=== PATIENT | male | born 1985 | race Two or more races ===

== ENCOUNTER 2019-06-09 16:36 | Emergency (ER) | payer MEDICAID ==
[~2019-06-09] VITALS: Ht 177.8 cm; Wt 77.1 kg
[2019-06-09 16:40] VITALS: BP 141/80
--- NOTE | 2019-06-09 16:40 | NUR ---
ED Nurse Note: Patient brought in by RA from a gas station c/o tingling and numbness located on the right side of his body, patient states that he has been experiencing left sided chest pain for 1 year now, pain is aggravateted by pulling, states that he called rescue due to him feeling numbess and tingling. patient is alert and oriented x4, ambulatory with a steady gait, VSS IV started on left ac 18 gauge, patient placed on a diagnostic cardiac sonographer and waiting for orders
--- NOTE | 2019-06-09 16:56 | Emergency Room Report ---
History of Present Illness General Chief Complaint: General Complaint Source: Patient, EMS Present Illness HPI Disclaimer: Please note that this report is being documented using DRAGON technology. This can lead to erroneous entry secondary to incorrect interpretation by the dictating instrument. HPI: 34-year-old male with no reported medical history presents for evaluation of chest pain. Patient states he has been having intermittent left-sided chest pain that he feels like a pulling/tearing sensation below the left nipple for approximately 1 year. He has been seen at many hospitals over the past year for this presentation all of which he says have been unremarkable. He gets this pain whenever he lifts anything heavy or bends or twists at his chest. He also notes some epigastric and left upper quadrant burning that radiates up into the chest sometimes and takes omeprazole for it. This afternoon he was driving and became lightheaded and near syncopal but did not lose consciousness. He noted a burning sensation in the lower chest and the pain in the left upper chest as he usually does. He also had some tingling in the right arm which is new. He had a brief episode of shortness of breath and tachypnea and blurred vision but this is now resolved. There is no head injury , no loss of consciousness. He still feels the chest discomfort though not as severe. Still some lightheadedness. Numbness and tingling is resolved and he said he had some spasming in the right arm during this episode. No prior history of anxiety. Non-smoker, no drug use, no alcohol use. Denies family history of CAD. No diabetes. PMH: Denies PSH: Denies Allergies: Denies Social Hx: Denies tobacco, alcohol or drug use Allergies: Coded Allergies: No Known Allergies (Unverified , 06/09/19) Nursing Documentation-PMH Past Medical History: No History, Except For Review of Systems All Other Systems: negative except mentioned in HPI Physical Exam Vital Signs Date Time Temp Pulse Resp B/P (MAP) Pulse Ox O2 Delivery O2 Flow Rate FiO2 06/09/19 16:32 98.6 84 16 141/80 (100) 100 Room Air General: Awake and alert, no acute distress HEENT: NC/AT. EOMI. PERRLA, anicteric sclera. Dry mucous membranes Neck: Supple, trachea midline Chest Wall: Tender to palpation of the left chest wall and over the sternum. No deformity, no crepitus Cardiovascular: RRR. S1 and S2 normal. No murmur appreciated Resp: Normal work of breathing. No cough, wheezing or crackles appreciated Abdomen: Abdomen is soft, nondistended. Nontender Skin: Intact. No abrasions, laceration or rash over the exposed skin MSK: Normal tone and bulk. Moving all extremities. No obvious deformity. Neuro: Awake and alert. Mentating appropriately. Medical Decision Making Diagnostic Impression: Primary Impression: Chest pain ER Course This a 34-year-old male presenting for evaluation of chest pain and near syncope. Differential includes was not limited to angina, ACS, arrhythmia, anxiety, aortic aneurysm, bronchitis, GERD, pneumonia, pneumothorax, viral syndrome, electrolyte abnormality. We will start broad metabolic and cardiac work-up. Patient will have EKG, chest x-ray be treated with aspirin and nitroglycerin. We will also give a GI cocktail possibly for GERD. He has an appointment with his PMD tomorrow and states that his chest pain and abdominal burning are the same symptoms he has had for 1 year the only new symptom is the near syncope and the tingling in the right arm. Disposition depending on patient clinical condition and lab results. Laboratory Tests Test 06/09/19 16:45 06/09/19 19:20 White Blood Count 8.4 K/UL (4.8-10.8) Red Blood Count 5.20 M/UL (4.70-6.10) Hemoglobin 16.2 G/DL (14.2-18.0) Hematocrit 47.3 % (42.0-52.0) Mean Corpuscular Volume 91 FL (80-99) Mean Corpuscular Hemoglobin 31.3 PG (27.0-31.0) H Mean Corpuscular Hemoglobin Concent 34.3 G/DL (32.0-36.0) Red Cell Distribution Width 10.2 % (11.6-14.8) L Platelet Count 208 K/UL (150-450) Mean Platelet Volume 8.6 FL (6.5-10.1) Neutrophils (%) (Auto) 52.3 % (45.0-75.0) Lymphocytes (%) (Auto) 38.6 % (20.0-45.0) Monocytes (%) (Auto) 6.2 % (1.0-10.0) Eosinophils (%) (Auto) 2.0 % (0.0-3.0) Basophils (%) (Auto) 0.9 % (0.0-2.0) Sodium Level 139 MMOL/L (136-145) Potassium Level 3.4 MMOL/L (3.5-5.1) L Chloride Level 102 MMOL/L (98-107) Carbon Dioxide Level 24 MMOL/L (21-32) Anion Gap 13 mmol/L (5-15) Blood Urea Nitrogen 11 mg/dL (7-18) Creatinine 0.9 MG/DL (0.55-1.30) Estimate Glomerular Filtration Rate > 60 mL/min (>60) Glucose Level 99 MG/DL (74-106) Calcium Level 9.4 MG/DL (8.5-10.1) Phosphorus Level 2.4 MG/DL (2.5-4.9) L Magnesium Level 2.0 MG/DL (1.8-2.4) Total Bilirubin 0.4 MG/DL (0.2-1.0) Aspartate Amino Transferase (AST) 22 U/L (15-37) Alanine Aminotransferase (ALT) 34 U/L (12-78) Alkaline Phosphatase 74 U/L (46-116) Total Creatine Kinase 373 U/L (26-308) H Creatine Kinase MB 0.7 NG/ML (0.0-3.6) Creatine Kinase MB Relative Index 0.1 Troponin I 0.000 ng/mL (0.000-0.056) 0.000 ng/mL (0.000-0.056) Pro-B-Type Natriuretic Peptide 65 pg/mL (0-125) Total Protein 8.3 G/DL (6.4-8.2) H Albumin 4.6 G/DL (3.4-5.0) Globulin 3.7 g/dL Albumin/Globulin Ratio 1.2 (1.0-2.7) EKG Diagnostic Results EKG Time: 16:53 Rate: normal Rhythm: NSR ST Segments: no acute changes Other Impression Sinus rhythm, normal axis, normal intervals, no ST segment changes. Hyperacute T waves in V3 and V4 Rhythm Strip Diag. Results Rhythm Strip Time: 16:53 EP Interpretation: yes Rate: 60s Rhythm: NSR, no PVC's, no ectopy Chest X-Ray Diagnostic Results Chest X-Ray Diagnostic Results : Chest X-Ray Ordered: Yes # of Views/Limited/Complete: 1 View Indication: Chest Pain EP Interpretation: Yes Interpretation: no consolidation, no effusion, no pneumothorax, no acute cardiopulmonary disease, other - Normal cardiac silhouette, normal mediastinum size Impression: No acute disease Electronically Signed by: signed by Dr. James Desai Reevaluation Time: 20:30 Last Vital Signs Date Time Temp Pulse Resp B/P (MAP) Pulse Ox O2 Delivery O2 Flow Rate FiO2 06/09/19 16:32 98.6 84 16 141/80 (100) 100 Room Air Status: improved Reevaluation Impression Patient's labs, EKG and chest x-ray returned largely within normal limits. Troponins are negative x2. The mediastinum is not enlarged. The patient continues to complain of intermittent discomfort over the left lower chest and lower abdomen which is a burning sensation coming up. No significant improvement after Ativan. Notes intermittent dizziness. He has been having this symptoms steadily for the past year and has an appointment to follow-up with his PMD for referral to cardiology and possible gastroenterology for EGD tomorrow at 10:30 AM. I strongly encouraged him to keep this appointment as he requires follow-up and further outpatient testing. At this time, does not appear that he requires admission for cardiology work-up or emergent EGD but I did instruct him to follow-up as instructed as he needs further testing as an outpatient. I believe he is safe for outpatient follow-up and the patient was discharged. We discussed reasons to return to the emergency department. He understands and agrees with the treatment plan. Disposition: HOME, SELF-CARE Condition: Stable James Desai MD Jun 09, 2019 16:56
[2019-06-09] MEDS ORDERED: Lidocaine 2% Visc 15ml soln ORAL ONE (17:00)
[2019-06-09] MEDS ORDERED: Dicyclomine HCl 10mg/5ml oral soln ORAL ONE (17:00)
[2019-06-09] MEDS ORDERED: Aspirin Baby 81mg ORAL ONE (17:00)
[2019-06-09] MEDS ORDERED: Mylanta II UD 30ml ORAL ONE (17:00)
[2019-06-09 17:06] LABS: BASOPHILS % (AUTO) 0.9 % (0.0-2.0); HEMATOCRIT 47.3 % (42.0-52.0); HEMOGLOBIN 16.2 G/DL (14.2-18.0); LYMPHOCYTES % (AUTO) 38.6 % (20.0-45.0); MEAN CORPUSCULAR VOLUME 91 FL (80-99); MONOCYTES % (AUTO) 6.2 % (1.0-10.0); NEUTROPHILS % (AUTO) 52.3 % (45.0-75.0); PLATELET COUNT 208 K/UL (150-450); RED CELL DISTRIBUTION WIDTH 10.2 % (11.6-14.8); WHITE BLOOD COUNT 8.4 K/UL (4.8-10.8)
[2019-06-09 17:20] LABS: ANION GAP 13 mmol/L (5-15); BLOOD UREA NITROGEN 11 mg/dL (7-18); CALCIUM 9.4 MG/DL (8.5-10.1); CARBON DIOXIDE 24 MMOL/L (21-32); CHLORIDE 102 MMOL/L (98-107); CREATININE 0.9 MG/DL (0.55-1.30); POTASSIUM 3.4 MMOL/L (3.5-5.1); SODIUM 139 MMOL/L (136-145)
[2019-06-09 17:33] LABS: PHOSPHORUS 2.4 MG/DL (2.5-4.9)
[2019-06-09 17:34] LABS: ALANINE AMINOTRANSFERASE 34 U/L (12-78); ALBUMIN 4.6 G/DL (3.4-5.0); ALBUMIN/GLOBULIN RATIO 1.2 (1.0-2.7); ALKALINE PHOSPHATASE 74 U/L (46-116); ASPARTATE AMINO TRANSFERASE 22 U/L (15-37); BILIRUBIN,TOTAL 0.4 MG/DL (0.2-1.0); CKMB 0.7 NG/ML (0.0-3.6); CREATINE KINASE 373 U/L (26-308)
--- NOTE | 2019-06-09 17:40 | NUR ---
ED Nurse Note: given 1 nitroglycerin tablet
--- NOTE | 2019-06-09 17:45 | NUR ---
ED Nurse Note: 2nd nitroglycerin given due to patient stating a pressure like pain
[2019-06-09] MEDS ORDERED: OMEPRAZOLE20 M3 ORAL (17:46)
[2019-06-09] MEDS: Nitroglycerin Subl 0.4mg tab SL PRN ×2 (17:47→22:40)
--- NOTE | 2019-06-09 17:52 | Diagnostic Imaging Report ---
Indication: Chest pain Technique: One view of the chest Comparison: none Findings: Lungs and pleural spaces are clear. Heart size is normal. Impression: No acute process
[2019-06-09] MEDS ORDERED: LORazepam Inj 2mg/ml 1ml IV ONE (18:00)
[2019-06-09] MEDS ORDERED: Ketorolac 30mg Inj IV ONE (18:00)
--- NOTE | 2019-06-09 19:13 | NUR ---
HAND-OFF: Report given to LUC Morrow.
--- NOTE | 2019-06-09 19:16 | NUR ---
ED Nurse Note: Received pt from LUC Fitzgerald. pt in stable condition. Pt is AAOx4, vss, with no signs of distress.
[2019-06-09] MEDS ORDERED: Meclizine 25mg tab ORAL ONE (20:30)
--- NOTE | 2019-06-09 20:31 | NUR ---
ER DISCHARGE NOTE: Patient is cleared to be discharged per ERMD, pt is aox4, on room air, with stable vital signs. pt was given dc and prescription instructions, pt was able to verbalize understanding, pt id band and iv site removed without complications. pt is able to ambulate with steady gait. pt took all belongings. Pt states pain improved and verbalized understanding.
[2019-06-09 22:40] VITALS: BP 126/78
== END 2019-06-09 20:31 | disposition home or self-care (01) ==
LOC: EDBD 16:36 → EMR 17:02
DX: R07.9 Chest pain, unspecified (principal); R42 Dizziness and giddiness; R06.02 Shortness of breath
CPT/HCPCS: 36415; 71045; 80053; 82550; 82553; 83735; 83880; 84100; 84484; 85025; 93005; 96374; 96375; J1885; Z7502; 99284